=== PATIENT | male | born 1985 | race African-American/Black ===

== ENCOUNTER 2021-01-22 11:44 | Emergency (ER) | payer OTHER, SELFPAY ==
[2021-01-22 11:50] VITALS: BP 152/84; PULSE 64; RESP 14; TEMP 37.3; O2SAT 100; BMI 28.1
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
--- NOTE | 2021-01-22 12:30 | PC.NURSE ---
Abrasions cleaned with saline and gauze. Bandages applied abrasions.
[2021-01-22] MEDS: KETOROLAC 30 MG/ML VIAL IM (12:38)
[2021-01-22] MEDS: BACITRACIN OINT 0.9 GM PCKT 1 APPLIC TOP (12:38)
== END 2021-01-22 12:41 | disposition home or self-care (01) ==
PROVIDERS: Emergency Provider Physician Assistant
DX: S40.212A Abrasion of left shoulder, initial encounter (principal); S50.812A Abrasion of left forearm, initial encounter; S70.212A Abrasion, left hip, initial encounter; S80.212A Abrasion, left knee, initial encounter; V29.9XXA Motorcycle rider (driver) (passenger) injured in unspecified traffic accident, initial encounter
CPT/HCPCS: 96372; 99283; J1885

== ENCOUNTER 2021-03-22 22:16 | Emergency (ER) | payer OTHER, SELFPAY ==
[2021-03-22 22:22] VITALS: BP 173/91; PULSE 76; RESP 16; TEMP 36.9; O2SAT 98; BMI 29.0
--- NOTE | 2021-03-22 22:33 | ED.GENADULT ---
HPI - General Adult General Chief complaint: Urogenital-Male Stated complaint: Abd Pain Time Seen by Provider: 03/22/21 22:18 Source: patient Mode of arrival: Ambulatory History of Present Illness HPI narrative: Patient is a 36-year-old male. Approximately 1 week ago he was seen at an outside facility with left-sided discomfort. He was diagnosed with a left-sided kidney stone. Had a stent placed at that facility. Was discharged home soon afterwards. Not on antibiotics. Does have prescription for tramadol. Has had blood in his urine since then. He was told that this would happen however today he started to have some abdominal discomfort and blood in his stool. No fevers. Has taking his tramadol without improvement. Related Data Previous Rx's Medication Instructions Recorded hydrocodone 5 mg-acetaminophen 325 1 tab PO Q4-6H PRN #10 tab 03/22/21 mg tablet Allergies Allergy/AdvReac Type Severity Reaction Status Date / Time No Known Drug Allergies Allergy Verified 01/22/21 11:55 Review of Systems Constitutional Constitutional: Denies fever(s) Cardiovascular Comments: No chest pain Respiratory Comments: No shortness of breath Gastrointestinal Gastrointestinal: Reports abdominal pain, Denies melena, Reports hematochezia, Denies nausea and Denies vomiting Genitourinary Comments: Blood in urine Integumentary/Breasts Skin/Breast: Reports system reviewed and no additional complaints, except as documented Hematologic/Lymphatic On Anticoagulants: No Patient History Medical History Renal colic on left side Social History Smoking Status: Unknown if ever smoked Smoking Status: Unknown if ever smoked alcohol intake frequency: a few times a month Substance Use Type: does not use Exam Initial Vital Signs Initial Vital Signs: Vital Signs Temperature 98.4 F 03/22/21 22:22 Pulse Rate 76 03/22/21 22:22 Respiratory Rate 16 03/22/21 22:22 Blood Pressure 173/91 H 03/22/21 22:22 Pulse Oximetry 98 03/22/21 22:22 Const General: cooperative, healthy appearing and comfortable HENMT Head: normal to inspection and normocephalic Resp Effort & Inspection: normal respiratory effort Auscultation: clear to auscultation bilaterally Cardio Rate: regular rate Rhythm: regular rhythm GI Inspection: normal to inspection Palpation: soft, No firm and No tender Skin General: no rashes or lesions noted Neuro General: patient alert, patient awake and moves all extremities Extrem General: normal to inspection and capillary refill normal Psych Appearance: grossly normal and well kempt Course Orders Ordered: ED Orders 03/22/21 22:32 Complete Blood Count AUTO DIFF Stat Comprehensive Metabolic Panel Stat Lipase Stat 03/22/21 22:34 CT abdomen pelvis w con Stat 03/22/21 23:27 Urinalysis and Microscopic Stat Discontinued Medications Hydrocodone Bitart/Acetaminophen (Hydrocodone/Acet 5/325 Prepack) 1 bottle MISC SEEINSTR ONE Stop: 03/22/21 23:58 Vital Signs Vital signs: Vital Signs - 8 hr 03/22/21 22:22 Temperature 98.4 F Pulse Rate 76 Respiratory Rate 16 Blood Pressure 173/91 H Pulse Oximetry 98 Medical Decision Making Lab Data Lab results reviewed: Yes I reviewed the patient's lab results. Result diagrams: 03/22/21 22:32 03/22/21 22:32 Labs: Lab Results 03/22/21 03/22/21 03/22/21 Range/Units 22:32 22:32 22:32 WBC 7.2 (4.5-11.0) X10^3/uL RBC 5.24 (4.5-5.9) X10^6/uL Hgb 16.1 (13.5-17.5) g/dL Hct 47.0 (41-53) % MCV 89.8 (80-100) fL MCH 30.8 (26-34) PG MCHC 34.3 (30-36) % RDW 13.2 (11.6-14.8) % Plt Count 214 (150-400) X10^3/uL Neut % (Auto) 52.2 (50-75) % Lymph % (Auto) 36.6 (25-40) % [place] % (Auto) 8.9 (3-14) % Eos % (Auto) 1.4 L (2-4) % Baso % (Auto) 0.9 (0-2) % Neut # (Auto) 3800 (5363-6420) /uL Lymph # (Auto) 2600 (2447-2350) /uL [place] # (Auto) 600 (0-900) /uL Eos # (Auto) 100 (0-450) /uL Baso # (Auto) 100 (0-100) /uL Sodium 139 (137-145) mmol/L Potassium 3.8 (3.4-5.1) mmol/L Chloride 107 (98-107) mmol/L Carbon Dioxide 27 (22-32) mmol/L BUN 17 (9-20) mg/dL Creatinine 0.76 (0.66-1.25) mg/dL Estimated GFR > 60.0 (>60) mL/min BUN/Creatinine Ratio 22.4 H (6-22) Glucose 124 H (70-100) mg/dL Calcium 9.3 (8.4-10.2) mg/dL Total Bilirubin 0.7 (0.2-1.3) mg/dL AST 28 (17-59) IU/L ALT 32 (<50) IU/L Alkaline Phosphatase 52 (38-126) U/L Total Protein 7.1 (6.3-8.2) g/dL Albumin 4.2 (3.5-5.0) g/dL Globulin 2.9 (1.7-4.1) g/dL Albumin/Globulin Ratio 1.4 (1.0-2.8) Lipase 548 H (23-300) U/L Urine Color Urine Appearance Urine pH (4.5-8.0) Ur Specific [place] (1.000-1.035) Urine Protein (Negative) Urine Glucose (UA) (Negative) g/dL Urine Ketones (NEGATIVE) Urine Occult Blood (Negative) Urine Nitrate (Negative) Urine Bilirubin (NEGATIVE) Urine Urobilinogen (0.2) E.U./dL Ur Leukocyte Esterase (NEGATIVE) Urine RBC (0-5/HPF) Urine WBC (0-5/HPF) Ur Squamous Epith Cells (0-5/HPF) Urine Bacteria (None) Ur Culture Indicated? 03/22/21 Range/Units 23:27 WBC (4.5-11.0) X10^3/uL RBC (4.5-5.9) X10^6/uL Hgb (13.5-17.5) g/dL Hct (41-53) % MCV (80-100) fL MCH (26-34) PG MCHC (30-36) % RDW (11.6-14.8) % Plt Count (150-400) X10^3/uL Neut % (Auto) (50-75) % Lymph % (Auto) (25-40) % [place] % (Auto) (3-14) % Eos % (Auto) (2-4) % Baso % (Auto) (0-2) % Neut # (Auto) (4816-1851) /uL Lymph # (Auto) (6239-0260) /uL [place] # (Auto) (0-900) /uL Eos # (Auto) (0-450) /uL Baso # (Auto) (0-100) /uL Sodium (137-145) mmol/L Potassium (3.4-5.1) mmol/L Chloride (98-107) mmol/L Carbon Dioxide (22-32) mmol/L BUN (9-20) mg/dL Creatinine (0.66-1.25) mg/dL Estimated GFR (>60) mL/min BUN/Creatinine Ratio (6-22) Glucose (70-100) mg/dL Calcium (8.4-10.2) mg/dL Total Bilirubin (0.2-1.3) mg/dL AST (17-59) IU/L ALT (<50) IU/L Alkaline Phosphatase (38-126) U/L Total Protein (6.3-8.2) g/dL Albumin (3.5-5.0) g/dL Globulin (1.7-4.1) g/dL Albumin/Globulin Ratio (1.0-2.8) Lipase (23-300) U/L Urine Color Dark yellow Urine Appearance Cloudy Urine pH 6.5 (4.5-8.0) Ur Specific [place] 1.015 (1.000-1.035) Urine Protein 2+ H (Negative) Urine Glucose (UA) Trace H (Negative) g/dL Urine Ketones Negative (NEGATIVE) Urine Occult Blood 3+ H (Negative) Urine Nitrate Negative (Negative) Urine Bilirubin Negative (NEGATIVE) Urine Urobilinogen 1.0 (0.2) E.U./dL Ur Leukocyte Esterase Trace H (NEGATIVE) Urine RBC >100/hpf H (0-5/HPF) Urine WBC 0-1/hpf (0-5/HPF) Ur Squamous Epith Cells 0-1 /hpf (0-5/HPF) Urine Bacteria None seen (None) Ur Culture Indicated? Cult not indicated Imaging Data CT scan - abdomen/pelvis: Radiologist's Impression: [address] [address] [address] Scan Report Signed Patient: Bhavin Drake MR#: [id number] : 1985 Acct:[id number] Age/Sex: 36 / M Date of Service: 03/22/21 Loc: ED Accession Number: [id number] ?? Procedure: CT abdomen pelvis w con Ordering Provider: Zach Toro D.O. PROCEDURE:? CT ABDOMEN PELVIS W CON ? INDICATIONS:? Left-sided abdominal pain ? TECHNIQUE:? After the administration of oral and IV contrast, axial sections were acquired from the lung bases to the pubic symphysis.? Coronal and sagittal reformats were performed.? For radiation dose reduction, the following was used:? automated exposure control, adjustment of mA and/or kV according to patient size. ? COMPARISON:? None. ? FINDINGS:? Image quality:? Excellent.? ? Lung bases:? Unremarkable.? ? Heart:? Heart is normal in size. ? ? ABDOMEN: Liver:? No mass lesion. Gallbladder:? Within normal limits without gallstones.? ? Biliary ducts:? No biliary ductal dilatation.? ? Pancreas:? Unremarkable.? ? Spleen:? The spleen is mildly enlarged, measuring up to 14.1 cm.? Adrenal Glands:? No adrenal nodules.? ? Kidneys and Ureters:? There is a left ureteral stent present with the proximal coil in the left renal pelvis and the distal coil in the urinary bladder.? There is mild pelvicaliectasis in the left kidney and mild urothelial thickening in the left renal collecting system.? No abnormal dilatation of the ureter.? There is minimal left perinephric and periureteral stranding.? There are 3 nonobstructing stones within the left kidney, with 2 stones in the inferior pole measuring up to 0.7 cm and 0.5 cm and a stone in the superior pole measuring up to 0.4 cm.? No right renal stones or right hydronephrosis.? Right ureter is nondistended.? Bilateral cortical renal cysts are demonstrated, with the left cyst demonstrating attenuation values slightly higher than expected for a simple cyst. Stomach and Bowel:? Stomach, small bowel loops, and colon are normal in caliber and wall thickness.? The appendix is normal in appearance.? There is colonic diverticulosis without acute diverticulitis. Peritoneum:? No abnormal intraperitoneal fluid.? No free air.? ? Ventral Wall: ? No hernia.? Abdominal Nodes:? No retroperitoneal or mesenteric adenopathy by size criteria.? Vessels:? Aorta and inferior vena cava are normal in size.? ? PELVIS: Pelvic Organs:? Unremarkable.? ? Bladder:? Unremarkable.? ? Pelvic Nodes: No enlarged lymph nodes.? Miscellaneous: No inguinal hernias are seen. ? ? ? Bones:? Visualized osseous structures demonstrate no suspicious focal lesions. ? IMPRESSION:? ? 1.? Left ureteral stent present with associated mild left pelvicaliectasis.? No hydroureter. ? 2. Mild urothelial thickening in the left renal collecting system is nonspecific and may be reactive but may also reflect a urinary tract infection. ? 3. Nonobstructing left renal stones as described. ? 4. Colonic diverticulosis without acute diverticulitis. ? 5. Slightly hyperattenuating left renal cyst suggestive of a hyperdense cyst with proteinaceous or hemorrhagic contents. ? ? Dictated by: Josse Lu M.D. on 03/22/2021 at 23:09 ? ? Approved by: Josse Lu M.D. on 03/22/2021 at 23:15?? MDM Narrative Medical decision making narrative: Urine shows no signs of infection. Labs unremarkable. CT scan shows that the stent is in place. Patient has not been camping. No recent antibiotics. No recent travel out of the state. Has not had fevers. I feel that we can hold on stool samples for now. No indication for antibiotics. He has seen his primary doctor and there is a referral in for him to see Urology. He was given return precautions and follow-up instructions. He expressed understanding agreement. Discharge Plan Departure Patient Disposition: Home Clinical Impression: Hematuria, Abdominal pain Instructions: DI for Abdominal Pain-Adult, DI for Hematuria Activity Restrictions/Additional Instructions: I do recommend that you follow-up with Urology. Continue to take all your medications as directed. Return to the emergency department for any new or worsening symptoms. Prescriptions: New hydrocodone-acetaminophen 5-325 mg tablet 1 tab PO Q4-6H PRN (Reason: pain) Qty: 10 0RF Referrals: Bishnu Garcia MD [Physician] -
--- NOTE | 2021-03-22 22:34 | DI.CT.S_ITS ---
PROCEDURE: CT ABDOMEN PELVIS W CON INDICATIONS: Left-sided abdominal pain TECHNIQUE: After the administration of oral and IV contrast, axial sections were acquired from the lung bases to the pubic symphysis. Coronal and sagittal reformats were performed. For radiation dose reduction, the following was used: automated exposure control, adjustment of mA and/or kV according to patient size. COMPARISON: None. FINDINGS: Image quality: Excellent. Lung bases: Unremarkable. Heart: Heart is normal in size. ABDOMEN: Liver: No mass lesion. Gallbladder: Within normal limits without gallstones. Biliary ducts: No biliary ductal dilatation. Pancreas: Unremarkable. Spleen: The spleen is mildly enlarged, measuring up to 14.1 cm. Adrenal Glands: No adrenal nodules. Kidneys and Ureters: There is a left ureteral stent present with the proximal coil in the left renal pelvis and the distal coil in the urinary bladder. There is mild pelvicaliectasis in the left kidney and mild urothelial thickening in the left renal collecting system. No abnormal dilatation of the ureter. There is minimal left perinephric and periureteral stranding. There are 3 nonobstructing stones within the left kidney, with 2 stones in the inferior pole measuring up to 0.7 cm and 0.5 cm and a stone in the superior pole measuring up to 0.4 cm. No right renal stones or right hydronephrosis. Right ureter is nondistended. Bilateral cortical renal cysts are demonstrated, with the left cyst demonstrating attenuation values slightly higher than expected for a simple cyst. Stomach and Bowel: Stomach, small bowel loops, and colon are normal in caliber and wall thickness. The appendix is normal in appearance. There is colonic diverticulosis without acute diverticulitis. Peritoneum: No abnormal intraperitoneal fluid. No free air. Ventral Wall: No hernia. Abdominal Nodes: No retroperitoneal or mesenteric adenopathy by size criteria. Vessels: Aorta and inferior vena cava are normal in size. PELVIS: Pelvic Organs: Unremarkable. Bladder: Unremarkable. Pelvic Nodes: No enlarged lymph nodes. Miscellaneous: No inguinal hernias are seen. Bones: Visualized osseous structures demonstrate no suspicious focal lesions. IMPRESSION: 1. Left ureteral stent present with associated mild left pelvicaliectasis. No hydroureter. 2. Mild urothelial thickening in the left renal collecting system is nonspecific and may be reactive but may also reflect a urinary tract infection. 3. Nonobstructing left renal stones as described. 4. Colonic diverticulosis without acute diverticulitis. 5. Slightly hyperattenuating left renal cyst suggestive of a hyperdense cyst with proteinaceous or hemorrhagic contents. Dictated by: Josse Lu M.D. on 03/22/2021 at 23:09 Approved by: Josse Lu M.D. on 03/22/2021 at 23:15
[2021-03-22 22:43] LABS: Add Manual Diff / Slide Review NO; Basophils Absolute Auto 100 /uL (0-100); Basophils Percent Auto 0.9 % (0-2); Eosinophils Absolute Auto 100 /uL (0-450); Eosinophils Percent Auto 1.4 % (2-4); Hemoglobin 16.1 g/dL (13.5-17.5); Lymphocytes Absolute Auto 2600 /uL (1100-4500); Lymphocytes Percent Auto 36.6 % (25-40); Mean Corpuscular HGB Conc 34.3 % (30-36); Mean Corpuscular Hemoglobin 30.8 PG (26-34); Mean Corpuscular Volume 89.8 fL (80-100); Monocytes Absolute Auto 600 /uL (0-900); Monocytes Percent Auto 8.9 % (3-14); Neutrophils Absolute Auto 3800 /uL (1500-7000); Neutrophils Percent Auto 52.2 % (50-75); Platelet Count 214 X10^3/uL (150-400); Red Blood Cell Count 5.24 X10^6/uL (4.5-5.9); Red Cell Distribution Width 13.2 % (11.6-14.8); White Blood Cell Count 7.2 X10^3/uL (4.5-11.0)
[2021-03-22 22:56] LABS: Lipase 548 U/L (23-300)
[2021-03-22 22:57] LABS: Alanine Aminotransferase 32 IU/L (<50); Albumin 4.2 g/dL (3.5-5.0); Albumin Globulin Ratio 1.4 (1.0-2.8); Alkaline Phosphatase 52 U/L (38-126); Aspartate Aminotransferase 28 IU/L (17-59); BUN Creatinine Ratio 22.4 (6-22); Bilirubin Total 0.7 mg/dL (0.2-1.3); Blood Urea Nitrogen 17 mg/dL (9-20); Calcium 9.3 mg/dL (8.4-10.2); Carbon Dioxide 27 mmol/L (22-32); Chloride 107 mmol/L (98-107); Estimated Glomerular Filt Rate > 60.0 mL/min (>60); Globulin 2.9 g/dL (1.7-4.1); Glucose 124 mg/dL (70-100); HEMOLYSIS 16 (0-50); Potassium 3.8 mmol/L (3.4-5.1); Sodium 139 mmol/L (137-145); Total Protein 7.1 g/dL (6.3-8.2)
[2021-03-22 23:30] LABS: Appearance Urine UA CLOUDY; Bilirubin Urine UA NEGATIVE (NEGATIVE); Glucose Urine UA TRACE g/dL (Negative); Ketones Urine UA NEGATIVE (NEGATIVE); Leukocyte Esterase Urine UA TRACE (NEGATIVE); Nitrite Urine UA NEGATIVE (Negative); Occult Blood Urine UA 3+ (Negative); Protein Urine UA 2+ (Negative); Specific Gravity Urine UA 1.015 (1.000-1.035); pH Urine UA 6.5 (4.5-8.0)
[2021-03-22 23:38] LABS: Bacteria Urine None Seen; Color Urine UA Dark Yellow; Culture Indicated Urine Cult Not Indicated; RBC Urine >100/HPF (0-5/HPF); Squamous Epithelial Cell Urine 0-1 /HPF (0-5/HPF); WBC Urine 0-1/HPF (0-5/HPF)
[2021-03-23] MEDS: HYDROCODONE/ACET 5/325 PREPACK 1 BOTTLE MISC (00:07)
[2021-03-23 00:12] VITALS: BP 152/77; PULSE 71; RESP 18; O2SAT 97
== END 2021-03-23 00:15 | disposition home or self-care (01) ==
PROVIDERS: Emergency Provider Emergency Medicine
DX: R10.9 Unspecified abdominal pain (principal); R31.9 Hematuria, unspecified; K92.1 Melena
CPT/HCPCS: 36415; 74177; 80053; 81001; 83690; 85025; 99284; Q9967

== ENCOUNTER → 2022-03-23 08:40 | Outpatient (CLI) | payer OTHER, SELFPAY ==
[2022-03-23 09:35] LABS: COVID19 -Nasal RAPID Negative (Negative)
== END ==
PROVIDERS: Referring Provider Internal Medicine; Visit Provider Internal Medicine
DX: Z20.822 Contact with and (suspected) exposure to COVID-19 (principal)
CPT/HCPCS: 87635; C9803

== ENCOUNTER → 2022-03-23 08:43 | Outpatient (CLI) | payer OTHER, SELFPAY ==
--- NOTE | 2022-03-29 09:07 | PM.PFT.1 ---
Pulmonary Function Test Referral & Results Date Patient Seen: 03/23/22 Requesting provider: Juan Ramon Tang Results: The spirometry demonstrates an FVC of 4.45 L which is 90% of predicted. The FEV1 was measured at 3.98 L which is 98% of predicted. The FEV1/FVC ratio was 88 which is 108% of predicted. Following the administration of bronchodilator there was no appreciable change to above normal numbers. Interpretation: This study demonstrates normal forced spirometry
== END ==
PROVIDERS: Referring Provider Chiropractor; Visit Provider Chiropractor
DX: J45.998 Other asthma (principal); Z87.891 Personal history of nicotine dependence; Z20.822 Contact with and (suspected) exposure to COVID-19; E11.9 Type 2 diabetes mellitus without complications
CPT/HCPCS: 36415; 71046; 80053; 81001; 87086; 87635; 94060; C9803

== ENCOUNTER → 2022-03-23 08:45 | Outpatient (CLI) | payer OTHER, SELFPAY ==
--- NOTE | 2022-03-23 08:50 | DI.RAD.S_ITS ---
PROCEDURE: XR CHEST 2V INDICATIONS: ASTHMA TECHNIQUE: 2 views of the chest were acquired. COMPARISON: None. FINDINGS: Surgical changes and devices: None. Lungs and pleura: Lungs are clear. No pleural effusions or pneumothorax. Mediastinum: Mediastinal contours are normal. Heart size is normal. Bones and chest wall: No suspicious bony abnormalities. Soft tissues appear unremarkable. IMPRESSION: No acute cardiopulmonary abnormalities or focal airspace disease. Dictated by: Abdulazzi Vale M.D. on 03/23/2022 at 11:11 Approved by: Abdulaziz Vale M.D. on 03/23/2022 at 11:11
[2022-03-23 11:10] LABS: Alanine Aminotransferase 33 IU/L (<50); Albumin 4.9 g/dL (3.5-5.0); Albumin Globulin Ratio 1.6 (1.0-2.8); Alkaline Phosphatase 69 U/L (38-126); Aspartate Aminotransferase 30 IU/L (17-59); BUN Creatinine Ratio 15.1 (6-22); Bilirubin Total 1.4 mg/dL (0.2-1.3); Blood Urea Nitrogen 13 mg/dL (9-20); Calcium 9.7 mg/dL (8.4-10.2); Carbon Dioxide 27 mmol/L (22-32); Chloride 104 mmol/L (98-107); Estimated Glomerular Filt Rate > 60 mL/min (>60); Globulin 3.1 g/dL (1.7-4.1); Glucose 89 mg/dL (70-100); HEMOLYSIS < 15 (0-50); Potassium 4.4 mmol/L (3.4-5.1); Sodium 142 mmol/L (137-145)
[2022-03-23 11:44] LABS: Appearance Urine UA CLEAR; Bilirubin Urine UA NEGATIVE (NEGATIVE); Color Urine UA YELLOW; Glucose Urine UA TRACE g/dL (Negative); Ketones Urine UA NEGATIVE (NEGATIVE); Leukocyte Esterase Urine UA TRACE (NEGATIVE); Nitrite Urine UA NEGATIVE (Negative); Occult Blood Urine UA 3+ (Negative); Protein Urine UA TRACE (Negative); Urobilinogen Urine UA 0.2 E.U./dL (0.2)
[2022-03-23 11:55] LABS: Amorphous Sediment Urine 1+; Bacteria Urine Occasional (0-1); Culture Indicated Urine Specimen Cultured; RBC Urine 5-10/HPF (0-5/HPF); WBC Urine 5-10/HPF (0-5/HPF)
== END ==
PROVIDERS: Referring Provider Chiropractor; Visit Provider Chiropractor
DX: J45.909 Unspecified asthma, uncomplicated; E11.9 Type 2 diabetes mellitus without complications
CPT/HCPCS: 36415; 71046; 80053; 81001; 87086

== ENCOUNTER 2023-11-30 20:00 | Emergency (ER) | payer OTHER, SELFPAY ==
[2023-11-30] VITALS (8 sets, daily range): BP systolic 130–152; BP diastolic 75–97; PULSE 49–55; RESP 18–28; TEMP 36.6; O2SAT 97–100; BMI 28.5
--- NOTE | 2023-11-30 21:10 | EKG_ITS ---
[place] [id number] [place] [id number] Test Date: 2023-11-30 Pat Name: Bhavin Drake Department: [facility] Room: Gender: Male Alcohol Rubber: : 1985 Requested By: Order Number: [id number] Reading MD: Cesar Strauss MD Measurements Intervals [place] Rate: 45 P: 20 DC: 162 QRS: 76 QRSD: 94 T: 60 QT: 472 QTc: 408 Interpretive Statements Sinus bradycardia Minimal voltage criteria for LVH, may be normal variant ( Sokolow-Cunha ) Electronically Signed On 12-01-2023 4:08:06 PDT by Cesar Strauss MD
--- NOTE | 2023-11-30 21:10 | DI.RAD.S_ITS ---
PROCEDURE: XR CHEST 1V INDICATIONS: chest pain TECHNIQUE: One view of the chest was acquired. COMPARISON: [facility], CR, XR CHEST 2V, 03/23/2022, 9:12. FINDINGS: Surgical changes and devices: None. Lungs and pleura: Lungs are clear. No pleural effusions or pneumothorax. Mediastinum: Mediastinal contours appear normal. Heart size is normal. Bones and chest wall: No suspicious bony lesions. Chronic right AC joint separation. Overlying soft tissues appear unremarkable. IMPRESSION: No acute cardiopulmonary abnormality is seen. Dictated by: Shannan Colindres M.D. on 11/30/2023 at 22:12 Approved by: Shannan Colindres M.D. on 11/30/2023 at 22:12
[2023-11-30 21:29] LABS: Add Manual Diff / Slide Review NO; Basophils Absolute Auto 100 /uL (0-100); Basophils Percent Auto 1.3 % (0-2); Eosinophils Absolute Auto 100 /uL (0-450); Eosinophils Percent Auto 1.3 % (2-4); Hematocrit 47.3 % (41-53); Hemoglobin 16.2 g/dL (13.5-17.5); Lymphocytes Absolute Auto 3300 /uL (1100-4500); Lymphocytes Percent Auto 45.6 % (25-40); Mean Corpuscular HGB Conc 34.2 % (30-36); Mean Corpuscular Volume 90.5 fL (80-100); Monocytes Absolute Auto 700 /uL (0-900); Neutrophils Absolute Auto 3000 /uL (1500-7000); Neutrophils Percent Auto 41.8 % (50-75); Platelet Count 195 X10^3/uL (150-400); Red Blood Cell Count 5.22 X10^6/uL (4.5-5.9); Red Cell Distribution Width 13.3 % (11.6-14.8); White Blood Cell Count 7.2 X10^3/uL (4.5-11.0)
[2023-11-30 21:34] LABS: INR 1.1 (0.9-1.3); Prothrombin Time 12.1 SECONDS (9.4-12.5)
[2023-11-30 21:37] LABS: PTT Partial Thromboplastin Tim 35 SECONDS (25.1-36.5)
--- NOTE | 2023-11-30 21:37 | ED.CHESTPAIN ---
HPI - Chest Pain General Chief Complaint: Syncope Stated Complaint: lightheaded, chest discomfort, low bp Time Seen by Provider: 11/30/23 21:19 Source: patient Mode of arrival: Ambulatory History of Present Illness HPI narrative: Patient is a 38-year-old male without significant past medical history presenting today with chest pain. He reports that he is very active he has a road cycle is and rides at least 16 hours a week. He has been noticing over the last few weeks or month that whenever he squats down he stands up and gets very dizzy and lightheaded. He has not passed out. [facility] because while he was petting his cat. He has been able to exercise without any issue. He has no family history of coronary artery disease or early . Related Data Previous Rx's Medication Instructions Recorded hydrocodone 5 mg-acetaminophen 325 1 tab PO Q4-6H PRN pain #10 tabs 03/22/21 mg tablet Allergies Allergy/AdvReac Type Severity Reaction Status Date / Time No Known Drug Allergies Allergy Verified 01/22/21 11:55 Patient History Medical History Renal colic on left side Social History Smoking Status: Unknown if ever smoked Smoking Status: Unknown if ever smoked alcohol intake frequency: a few times a month Substance Use Type: does not use Exam Initial Vital Signs Initial Vital Signs: Vital Signs Temperature 97.8 F 11/30/23 20:10 Pulse Rate 55 L 11/30/23 20:10 Respiratory Rate 18 11/30/23 20:10 Blood Pressure 148/85 H 11/30/23 20:10 Pulse Oximetry 97 11/30/23 20:10 Oxygen Delivery Method Room Air 11/30/23 20:10 GENERAL: Alert well-appearing 38-year-old male and in no acute distress. HEENT: Head atraumatic,EOMI, pupils reactive, face symmetric, moist mucous membranes CARDIOVASCULAR: Regular rate and rhythm without murmurs, rubs or gallops. RESPIRATORY: Breath sounds equal bilaterally, no wheezes rales or rhonchi. ABDOMEN: Soft, nontender. Normoactive bowel sounds all 4 quadrants. No guarding or rebound. : No CVA tenderness EXTREMITIES: Normal range of motion, no clubbing or edema. Neurovascularly intact NEUROLOGICAL: Alert and oriented x4.Normal gait and speech. SKIN: Warm, dry, no laceration, no petechiae, no rashes or lesions. Scores HEART Score Heart Score history: Moderately Suspicious Heart Score EKG: Non-Specific repolarization disturbance Heart Score Age: < 45 years old Heart Score risk factors: No known risk factors Heart Score troponin: < or = to normal limit Heart Score Total: 2 Course Orders Ordered: ED Orders 11/30/23 21:15 Complete Blood Count AUTO DIFF Stat Comprehensive Metabolic Panel Stat D Dimer Stat Lipase Stat Magnesium Stat NT-proBNP (BNP-Adult 18+) Stat PTT Partial Thromboplastin Dariusz Stat Prothrombin Time INR Stat Troponin & CK Cardiac Panel Stat 11/30/23 22:05 EKG-12 Lead Stat 11/30/23 23:10 Trop I [Troponin I] Stat 12/01/23 00:05 EKG-12 Lead Stat Discontinued Medications Aspirin (Aspirin 81 Mg Chew Tab) 324 mg PO NOW ONE Stop: 12/01/23 00:01 Last Admin: 12/01/23 00:06 Dose: 324 mg Documented By: MUNDO Vital Signs Vital signs: Vital Signs - 8 hr 11/30/23 22:30 11/30/23 23:00 11/30/23 23:30 Pulse Rate 49 L 53 L 54 L Respiratory Rate 28 H 24 23 Blood Pressure 132/85 131/80 130/77 Pulse Oximetry 98 97 98 Oxygen Delivery Method 12/01/23 00:00 Pulse Rate 62 Respiratory Rate 29 H Blood Pressure 141/75 H Pulse Oximetry 99 Oxygen Delivery Method Room Air MDM - Chest Pain Lab Data 11/30/23 21:15 11/30/23 21:15 Labs: Lab Results 11/30/23 11/30/23 Range/Units 21:15 23:10 WBC 7.2 (4.5-11.0) X10^3/uL RBC 5.22 (4.5-5.9) X10^6/uL Hgb 16.2 (13.5-17.5) g/dL Hct 47.3 (41-53) % MCV 90.5 (80-100) fL MCH 31.0 (26-34) PG MCHC 34.2 (30-36) % RDW 13.3 (11.6-14.8) % Plt Count 195 (150-400) X10^3/uL Neut % (Auto) 41.8 L (50-75) % Lymph % (Auto) 45.6 H (25-40) % [place] % (Auto) 10.0 (3-14) % Eos % (Auto) 1.3 L (2-4) % Baso % (Auto) 1.3 (0-2) % Neut # (Auto) 3000 (0967-3566) /uL Lymph # (Auto) 3300 (4669-4583) /uL [place] # (Auto) 700 (0-900) /uL Eos # (Auto) 100 (0-450) /uL Baso # (Auto) 100 (0-100) /uL PT 12.1 (9.4-12.5) SECONDS INR 1.1 (0.9-1.3) APTT 35 (25.1-36.5) SECONDS D-Dimer < 215 (<500) ng/ml Sodium 137 (137-145) mmol/L Potassium 4.0 (3.4-5.1) mmol/L Chloride 106 (98-107) mmol/L Carbon Dioxide 25 (22-32) mmol/L BUN 22 H (9-20) mg/dL Creatinine 1.20 (0.66-1.25) mg/dL Estimated GFR > 60 (>60) mL/min BUN/Creatinine Ratio 18.3 (6-22) Glucose 84 (70-100) mg/dL Calcium 9.6 (8.4-10.2) mg/dL Magnesium 2.1 (1.6-2.3) mg/dL Total Bilirubin 0.9 (0.2-1.3) mg/dL AST 29 (17-59) IU/L ALT 28 (<50) IU/L Alkaline Phosphatase 59 (38-126) U/L Total Creatine Kinase 111 (55-170) U/L Troponin I < 0.012 < 0.012 (0.01-0.034) ng/mL NT-Pro-B Natriuret Pep < 20 (<125) pg/mL Total Protein 7.5 (6.3-8.2) g/dL Albumin 4.4 (3.5-5.0) g/dL Globulin 3.1 (1.7-4.1) g/dL Albumin/Globulin Ratio 1.4 (1.0-2.8) Lipase 387 H (23-300) U/L Imaging Data Chest x-ray: Radiologist's Impression: PROCEDURE: XR CHEST 1V INDICATIONS: chest pain TECHNIQUE: One view of the chest was acquired. COMPARISON: [facility], , XR CHEST 2V, 03/23/2022, 9:12. FINDINGS: Surgical changes and devices: None. Lungs and pleura: Lungs are clear. No pleural effusions or pneumothorax. Mediastinum: Mediastinal contours appear normal. Heart size is normal. Bones and chest wall: No suspicious bony lesions. Chronic right AC joint separation. Overlying soft tissues appear unremarkable. IMPRESSION: No acute cardiopulmonary abnormality is seen. Dictated by: Shannan Colindres M.D. on 11/30/2023 at 22:12 Approved by: Shannan Colindres M.D. on 11/30/2023 at 22:12 ECG Data Attestation: I personally reviewed and interpreted this ECG as follows: Interpretation: Sinus rhythm rate 45 MI interval 162 QRS 90 4 QTC 408 Q-waves noted in inferior leads biphasic T-wave noted in V2 no ST depression EKG 2. Sinus rhythm persistent Q-waves V2 does appear slightly improved no changes in V3 or V1 no acute ST elevation depression EKG 3. Similar to prior without change MDM Narrative Medical decision making narrative: MDM CC: Chest Complicating co-morbidities: Healthy active young 38-year-old male Medical records reviewed: None Differential considered: Acute coronary syndrome, pulmonary embolism costochondritis pneumonia, Brugada Exam documented above, pertinent findings include: Bradycardic no murmur noted Lab Test results independently reviewed as above. Pertinent findings: 2- troponins, WBC 7.2 hemoglobin 16.2 hematocrit 47.3 platelets 195, D-dimer undetectable less than 215, sodium 137 potassium 4.0 chloride 106 carbon dioxide 25 BUN 22 creatinine 1.2 glucose 84 AST 29 ALT 28 bilirubin 0.9 BNP less than 20 Independently reviewed EKG as above: Sinus rhythm with biphasic T-wave noted in V2 no priors to compare no other T-wave inversions, repeat EKG shows persistent biphasic T-wave in V2 and V1. Possible through got a possible Wellens All 3 EKGs have persistent Q-waves and biphasic T-wave in V2 only Imaging studies independently reviewed: X-ray no acute cardiopulmonary process Consultations: [id number] Dr. Mayen cardiology has viewed EKGs herself and understands concern for like Wellens or Brugada but at this time without syncope she has not think this is related to his left-sided chest pain and recommends outpatient workup Treatments: Aspirin Re-evaluations: No recurrence of chest pain continues to have sinus bradycardia on the 48-50's Discussion: Patient is a healthy active 38-year-old male who presents today with left-sided chest pain while pending his CT. It did last for about 45 minutes and went to his shoulder blade. He does have an EKG with concerning V2 for possible Wellens versus Brugada. Cardiology was consulted without syncope or ongoing chest pain no concern. In recommended an outpatient workup. Patient does have a low risk heart score and a negative years score. He also complains of some dizziness lightheadedness when he is squatting. I do recommend an outpatient echocardiogram. Discussed with him at length that if he passes out he needs return to the ED. I also discussed with him not to take his propranolol because he has been so bradycardic. Recommend that he get a different anxiety medication Discharge Plan Departure Patient Disposition: Home Clinical Impression: Atypical chest pain Instructions: DI for Atypical Chest Pain Activity Restrictions/Additional Instructions: *You have been diagnosed with atypical chest pain *What to do: At this time I do recommend that you have outpatient workup including an echocardiogram and possible stress test. If you should have chest pain while exercising please stop and go to the ER *Continue to take medications as directed Do not take propranolol your heart rate is already too low *Follow up with your primary care provider in 2-3 days or call [phone] *Return to ER if you should have increasing chest pain passing out palpitations [or] any new, worsening or concerning symptoms Prescriptions: No Action hydrocodone-acetaminophen 5-325 mg tablet 1 tab PO Q4-6H PRN (Reason: pain) Qty: 10 0RF Referrals: ProviderSapna [Primary Care Provider] - Stand Alone Forms: Patient Portal/API
[2023-11-30 21:38] LABS: Alanine Aminotransferase 28 IU/L (<50); Albumin 4.4 g/dL (3.5-5.0); Albumin Globulin Ratio 1.4 (1.0-2.8); Alkaline Phosphatase 59 U/L (38-126); Aspartate Aminotransferase 29 IU/L (17-59); BUN Creatinine Ratio 18.3 (6-22); Bilirubin Total 0.9 mg/dL (0.2-1.3); Blood Urea Nitrogen 22 mg/dL (9-20); Calcium 9.6 mg/dL (8.4-10.2); Carbon Dioxide 25 mmol/L (22-32); Chloride 106 mmol/L (98-107); Creatine Kinase 111 U/L (55-170); D Dimer < 215 ng/ml (<500); Estimated Glomerular Filt Rate > 60 mL/min (>60); Globulin 3.1 g/dL (1.7-4.1); Glucose 84 mg/dL (70-100); HEMOLYSIS 15 (0-50); Lipase 387 U/L (23-300); Magnesium 2.1 mg/dL (1.6-2.3); Sodium 137 mmol/L (137-145); Total Protein 7.5 g/dL (6.3-8.2)
[2023-11-30 21:50] LABS: NT-proBNP (BNP-Adult 18+) < 20 pg/mL (<125); Troponin I < 0.012 ng/mL (0.01-0.034)
--- NOTE | 2023-11-30 22:24 | EKG_ITS ---
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
[2023-11-30 23:39] LABS: Troponin I < 0.012 ng/mL (0.01-0.034)
[2023-12-01] VITALS: BP 141/75; PULSE 62; RESP 29; O2SAT 99
--- NOTE | 2023-12-01 00:05 | EKG_ITS ---
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
[2023-12-01] MEDS: ASPIRIN 81 MG CHEW TAB 324 MG PO (00:06)
--- NOTE | 2023-12-01 00:16 | EKG_ITS ---
[facility] [address] [place] [address] Test Date: 2023-12-01 Pat Name: Bhavin Drake Department: 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 Seen in ED. Electronically Signed On 12-03-2023 8:24:59 PDT by Hussein Chiang
== END 2023-12-01 00:23 | disposition home or self-care (01) ==
PROVIDERS: Emergency Provider Emergency Medicine
DX: R07.89 Other chest pain (principal); R42 Dizziness and giddiness; R00.1 Bradycardia, unspecified; I49.8 Other specified cardiac arrhythmias
CPT/HCPCS: 36415; 71045; 80053; 82550; 83690; 83735; 83880; 84484; 85025; 85379; 85610; 85730; 93005; 93010; 99284